=== PATIENT | female | born 1945 | race Caucasian/White ===

== ENCOUNTER 2023-07-07 10:03 | Day surgery (SDC) | payer MEDICARE, BC ==
[2023-07-04 12:46] VITALS: BMI 36.3
[2023-07-07] MEDS ORDERED: PROPOFOL 40 ML ONE (11:55)
[2023-07-07] MEDS ORDERED: PROPOFOL 20 ML ONE (12:30)
== END 2023-07-07 13:35 | disposition home or self-care (01) ==
LOC: CSHSDC 10:03
PROVIDERS: ATTEND Internal Medicine Gastroenterology
PROC: 0DB68ZX Excision of Stomach, Via Natural or Artificial Opening Endoscopic, Diagnostic (ICD-10-PCS; principal; 2023-07-07)
PROC: 0DJD8ZZ Inspection of Lower Intestinal Tract, Via Natural or Artificial Opening Endoscopic (ICD-10-PCS; 2023-07-07)
DX: Z12.11 Encounter for screening for malignant neoplasm of colon (principal); K57.30 Diverticulosis of large intestine without perforation or abscess without bleeding; K44.9 Diaphragmatic hernia without obstruction or gangrene; K25.9 Gastric ulcer, unspecified as acute or chronic, without hemorrhage or perforation; K29.50 Unspecified chronic gastritis without bleeding; I10 Essential (primary) hypertension; K31.89 Other diseases of stomach and duodenum; E11.9 Type 2 diabetes mellitus without complications; E78.5 Hyperlipidemia, unspecified; G47.30 Sleep apnea, unspecified; M19.90 Unspecified osteoarthritis, unspecified site; K62.89 Other specified diseases of anus and rectum; E66.9 Obesity, unspecified; Z68.37 Body mass index [BMI] 37.0-37.9, adult; Z86.010 Personal history of colon polyps; Z91.041 Radiographic dye allergy status; Z88.2 Allergy status to sulfonamides; Z79.899 Other long term (current) drug therapy; Z98.890 Other specified postprocedural states; Z79.84 Long term (current) use of oral hypoglycemic drugs
CPT/HCPCS: 43239; 80048; 83036; G0105; 36415; 88305; J2704

== ENCOUNTER 2023-09-18 10:43 | Outpatient (CLI) | payer MEDICARE, BC | END 2023-09-18 10:44 | disposition home or self-care (01) | LOC: CSHMAMMO 10:43 | PROVIDERS: ATTEND Internal Medicine | DX: Z13.820 Encounter for screening for osteoporosis (principal) | CPT/HCPCS: 77080 ==